=== PATIENT | male | born 1960 | race Caucasian/White ===

== ENCOUNTER 2020-07-04 11:39 | Emergency (ER) | payer OTHER ==
[~2020-07-04] VITALS: Ht 182.8 cm; Wt 101.2 kg
[2020-07-04 12:08] LABS: BASO # 0.1 10*3/uL (0.0-0.1); BASO % 0.5 % (0.0-1.0); EOS # 0.1 10*3/uL (0.0-0.4); EOS % 1.1 % (1.0-4.0); HEMATOCRIT 36.6 % (42.0-52.0); LYMPH # 1.3 10*3/uL (1.3-4.4); LYMPH % 13.1 % (27.0-41.0); MEAN CELL VOLUME 93.8 fl (80.0-94.0); MEAN CORPUSCULAR HGB 29.5 pg (27.0-31.0); MEAN CORPUSCULAR HGB CONC 31.4 g/dl (33.0-37.0); MEAN PLATELET VOLUME 9.3 fl (9.6-12.3); MONO # 0.6 10*3/uL (0.1-1.0); MONO % 5.8 % (3.0-9.0); NEUT # 7.6 10*3/uL (2.3-7.9); NEUT % 78.8 % (47.0-73.0); PLATELET COUNT AUTOMATED 318 10*3/uL (130-400); RED CELL DISTRI WIDTH 12.8 % (0-14.5); WHITE BLOOD COUNT 9.7 10*3/uL (4.8-10.8)
[2020-07-04 12:18] LABS: ACT PARTIAL THROMBO TIME 29.3 SECONDS (20.0-32.1)
[2020-07-04 12:24] LABS: ALBUMIN 3.1 gm/dl (3.1-4.5); ALKALINE PHOSPHATASE 70 U/L (45-117); BUN 48 mg/dl (7-24); CHLORIDE 106 mmol/L (98-107); POTASSIUM 4.8 mmol/L (3.5-5.1); SGOT/AST 18 IU/L (3-35); SGPT/ALT 19 U/L (12-78); SODIUM 137 mmol/L (136-145)
[2020-07-04 12:27] LABS: TROPONIN I < 0.015 ng/ml (<0.045)
[2020-07-04] MEDS ORDERED: PROAIR HFA8.5 GM INH (14:54)
[2020-07-04] MEDS ORDERED: SIMVASTATIN20 MG PO (14:54)
[2020-07-04] MEDS ORDERED: FLOMAX0.4 MG PO (14:55)
== END 2020-07-04 14:48 | disposition admitted as inpatient to this hospital (09) ==
LOC: ED 11:39
PROVIDERS: Internal Medicine
DX: I16.1 Hypertensive emergency (principal); E78.00 Pure hypercholesterolemia, unspecified; K21.9 Gastro-esophageal reflux disease without esophagitis; J45.909 Unspecified asthma, uncomplicated

== ENCOUNTER 2020-07-04 13:25 | Inpatient (IN) | payer OTHER ==
[~2020-07-04] VITALS: Ht 182.8 cm; Wt 98.4 kg
[2020-07-04] MEDS ORDERED: PROAIR HFA8.5 GM INH (14:54)
[2020-07-04] MEDS ORDERED: SIMVASTATIN20 MG PO (14:54)
[2020-07-04] MEDS ORDERED: FLOMAX0.4 MG PO (14:55)
[2020-07-04 15:00] VITALS: BP 167/88
[2020-07-04 16:03] VITALS: BP 167/88
[2020-07-04 16:29] VITALS: BP 158/88
[2020-07-04 18:20] VITALS: BP 155/87
[2020-07-04 20:25] VITALS: BP 151/82
[2020-07-05] VITALS: BP 133/82
[2020-07-05 00:21] LABS: BILIRUBIN Negative (Negative); BLOOD Trace-Lysed (Negative); CLARITY Clear (Clear); COLOR Yellow (Yellow); GLUCOSE Negative (Negative); KETONE Negative (Negative); LEUKO ESTERASE Negative (Negative); NITRITE Negative (Negative); UROBILINOGEN 0.2 E.U./dl (0.0-1.0)
[2020-07-05 00:37] LABS: BACTERIA TRACE
[2020-07-05 04:00] VITALS: BP 141/80
[2020-07-05 06:15] LABS: ALBUMIN 2.6 gm/dl (3.1-4.5); CREATININE 2.55 mg/dL (0.70-1.30); FREE T4 0.95 ng/dl (0.76-1.46); POTASSIUM 4.8 mmol/L (3.5-5.1); TOTAL PROTEIN 6.8 gm/dL (6.4-8.2)
[2020-07-05 06:16] LABS: ACT PARTIAL THROMBO TIME 31.6 SECONDS (20.0-32.1)
[2020-07-05 06:20] LABS: THYROID STIM HORMONE (HS) 6.05 uIU/ml (0.358-4.75)
[2020-07-05 06:27] LABS: BASO # 0.1 10*3/uL (0.0-0.1); BASO % 0.5 % (0.0-1.0); EOS # 0.3 10*3/uL (0.0-0.4); EOS % 2.8 % (1.0-4.0); HEMATOCRIT 33.1 % (42.0-52.0); LYMPH # 1.9 10*3/uL (1.3-4.4); LYMPH % 20.1 % (27.0-41.0); MEAN CELL VOLUME 93.5 fl (80.0-94.0); MEAN CORPUSCULAR HGB 29.7 pg (27.0-31.0); MEAN CORPUSCULAR HGB CONC 31.7 g/dl (33.0-37.0); MEAN PLATELET VOLUME 9.6 fl (9.6-12.3); MONO # 0.7 10*3/uL (0.1-1.0); MONO % 7.1 % (3.0-9.0); NEUT # 6.5 10*3/uL (2.3-7.9); NEUT % 68.7 % (47.0-73.0); PLATELET COUNT AUTOMATED 306 10*3/uL (130-400); RED BLOOD COUNT 3.54 10*6/uL (4.50-5.90); RED CELL DISTRI WIDTH 12.6 % (0-14.5); WHITE BLOOD COUNT 9.4 10*3/uL (4.8-10.8)
[2020-07-05 11:41] VITALS: BP 150/81
[2020-07-05 16:00] VITALS: BP 154/74
[2020-07-05 20:00] VITALS: BP 153/87
[2020-07-06] VITALS (7 sets, daily range): BP systolic 146–163; BP diastolic 58–92
[2020-07-06 06:20] LABS: BASO % 0.3 % (0.0-1.0); EOS # 0.2 10*3/uL (0.0-0.4); EOS % 1.9 % (1.0-4.0); LYMPH # 1.6 10*3/uL (1.3-4.4); LYMPH % 16.9 % (27.0-41.0); MEAN CELL VOLUME 92.6 fl (80.0-94.0); MEAN CORPUSCULAR HGB 29.4 pg (27.0-31.0); MEAN CORPUSCULAR HGB CONC 31.8 g/dl (33.0-37.0); MEAN PLATELET VOLUME 9.4 fl (9.6-12.3); MONO # 0.7 10*3/uL (0.1-1.0); MONO % 7.6 % (3.0-9.0); NEUT # 6.9 10*3/uL (2.3-7.9); NEUT % 72.5 % (47.0-73.0); PLATELET COUNT AUTOMATED 295 10*3/uL (130-400); RED BLOOD COUNT 3.67 10*6/uL (4.50-5.90); RED CELL DISTRI WIDTH 12.5 % (0-14.5); WHITE BLOOD COUNT 9.5 10*3/uL (4.8-10.8)
[2020-07-06 06:35] LABS: CREATININE 2.67 mg/dL (0.70-1.30); POTASSIUM 4.9 mmol/L (3.5-5.1)
[2020-07-06 18:11] LABS: BILIRUBIN Negative (Negative); BLOOD Trace-Lysed (Negative); CLARITY Clear (Clear); COLOR Yellow (Yellow); GLUCOSE Negative (Negative); KETONE Negative (Negative); LEUKO ESTERASE Negative (Negative); NITRITE Negative (Negative); UROBILINOGEN 0.2 E.U./dl (0.0-1.0)
[2020-07-06 18:15] LABS: EPITHELIAL CELLS 0-2; RBC 0-2 rbc/hpf (0-2)
[2020-07-06 18:16] LABS: BACTERIA TRACE
[2020-07-07] VITALS (7 sets, daily range): BP systolic 142–168; BP diastolic 71–94
[2020-07-07 06:20] LABS: BASO # 0.1 10*3/uL (0.0-0.1); BASO % 0.6 % (0.0-1.0); EOS # 0.2 10*3/uL (0.0-0.4); EOS % 1.8 % (1.0-4.0); HEMATOCRIT 33.6 % (42.0-52.0); LYMPH # 1.6 10*3/uL (1.3-4.4); LYMPH % 17.7 % (27.0-41.0); MEAN CELL VOLUME 91.6 fl (80.0-94.0); MEAN CORPUSCULAR HGB 29.7 pg (27.0-31.0); MEAN CORPUSCULAR HGB CONC 32.4 g/dl (33.0-37.0); MEAN PLATELET VOLUME 9.3 fl (9.6-12.3); MONO # 0.7 10*3/uL (0.1-1.0); MONO % 7.8 % (3.0-9.0); NEUT # 6.6 10*3/uL (2.3-7.9); NEUT % 71.2 % (47.0-73.0); PLATELET COUNT AUTOMATED 334 10*3/uL (130-400); RED BLOOD COUNT 3.67 10*6/uL (4.50-5.90); RED CELL DISTRI WIDTH 12.4 % (0-14.5); WHITE BLOOD COUNT 9.3 10*3/uL (4.8-10.8)
[2020-07-07 06:26] LABS: POTASSIUM 4.6 mmol/L (3.5-5.1)
[2020-07-07 06:28] LABS: CREATININE 2.7 mg/dL (0.70-1.30)
[2020-07-08] VITALS: BP 162/87
[2020-07-08 06:27] LABS: BASO # 0.1 10*3/uL (0.0-0.1); BASO % 0.4 % (0.0-1.0); EOS # 0.1 10*3/uL (0.0-0.4); EOS % 1.2 % (1.0-4.0); HEMATOCRIT 34.6 % (42.0-52.0); LYMPH # 1.5 10*3/uL (1.3-4.4); LYMPH % 12.4 % (27.0-41.0); MEAN CELL VOLUME 91.3 fl (80.0-94.0); MEAN CORPUSCULAR HGB 29.6 pg (27.0-31.0); MEAN CORPUSCULAR HGB CONC 32.4 g/dl (33.0-37.0); MEAN PLATELET VOLUME 9.3 fl (9.6-12.3); MONO # 0.9 10*3/uL (0.1-1.0); MONO % 7.6 % (3.0-9.0); NEUT # 9.4 10*3/uL (2.3-7.9); NEUT % 77.8 % (47.0-73.0); PLATELET COUNT AUTOMATED 343 10*3/uL (130-400); RED BLOOD COUNT 3.79 10*6/uL (4.50-5.90); RED CELL DISTRI WIDTH 12.4 % (0-14.5); WHITE BLOOD COUNT 12.1 10*3/uL (4.8-10.8)
[2020-07-08 07:03] LABS: CREATININE 2.63 mg/dL (0.70-1.30); POTASSIUM 4.6 mmol/L (3.5-5.1)
[2020-07-08 08:00] VITALS: BP 155/85
[2020-07-08] MEDS ORDERED: PEPCID40 MG PO (11:08)
[2020-07-08] MEDS ORDERED: AMLODIPINE BESYL5 MG PO (11:08)
== END 2020-07-08 11:41 | disposition home or self-care (01) | DRG 682 ==
LOC: EDHOLD 13:25 → 5E 13:25
PROVIDERS: Hospitalist; Social Worker Clinical; Student in an Organized Health Care Education/Training Program; ADMIT Emergency Medicine; ATTEND Emergency Medicine
DX: N17.0 Acute kidney failure with tubular necrosis (principal); E43 Unspecified severe protein-calorie malnutrition; I16.1 Hypertensive emergency; D64.9 Anemia, unspecified; E83.41 Hypermagnesemia; G47.33 Obstructive sleep apnea (adult) (pediatric); K21.9 Gastro-esophageal reflux disease without esophagitis; N40.0 Benign prostatic hyperplasia without lower urinary tract symptoms; E78.2 Mixed hyperlipidemia; J45.909 Unspecified asthma, uncomplicated; R73.9 Hyperglycemia, unspecified; Z68.29 Body mass index [BMI] 29.0-29.9, adult

== ENCOUNTER → 2020-07-09 | Outpatient (CLI) | payer OTHER ==
[~2020-07-09] MED LIST: AMLODIPINE BESYL5 MG PO; FLOMAX0.4 MG PO; PEPCID40 MG PO; PROAIR HFA8.5 GM INH; SIMVASTATIN20 MG PO
[2020-07-09 16:11] LABS: CREATININE 2.72 mg/dL (0.70-1.30); POTASSIUM 4.6 mmol/L (3.5-5.1)
== END | disposition home or self-care (01) ==
LOC: LAB 15:23
PROVIDERS: ATTEND Internal Medicine
DX: N17.9 Acute kidney failure, unspecified (principal)

== ENCOUNTER → 2020-07-12 | Outpatient (CLI) | payer OTHER ==
[2020-07-12 15:15] LABS: CREATININE 2.42 mg/dL (0.70-1.30); POTASSIUM 4.4 mmol/L (3.5-5.1)
== END | disposition home or self-care (01) ==
LOC: LAB 00:14
PROVIDERS: ATTEND Internal Medicine
DX: N17.9 Acute kidney failure, unspecified (principal)

== ENCOUNTER → 2020-07-15 | Outpatient (CLI) | payer OTHER | END | disposition home or self-care (01) | LOC: RESCLI 01:22 | PROVIDERS: ATTEND Internal Medicine | DX: N28.89 Other specified disorders of kidney and ureter (principal); I10 Essential (primary) hypertension; E78.5 Hyperlipidemia, unspecified; K21.9 Gastro-esophageal reflux disease without esophagitis; R21 Rash and other nonspecific skin eruption; Z79.899 Other long term (current) drug therapy ==

== ENCOUNTER → 2020-07-23 | Outpatient (CLI) | payer OTHER ==
[2020-07-23 15:55] LABS: ALBUMIN 3.2 gm/dl (3.1-4.5); CREATININE 2.16 mg/dL (0.70-1.30); POTASSIUM 4.2 mmol/L (3.5-5.1)
== END | disposition home or self-care (01) ==
LOC: LAB 14:58
PROVIDERS: ATTEND Internal Medicine Nephrology
DX: N17.9 Acute kidney failure, unspecified (principal); I10 Essential (primary) hypertension; R60.0 Localized edema

== ENCOUNTER → 2020-08-03 | Outpatient (CLI) | payer OTHER ==
[2020-08-03 13:47] LABS: ALBUMIN 3.4 gm/dl (3.1-4.5); CREATININE 1.89 mg/dL (0.70-1.30); POTASSIUM 4.3 mmol/L (3.5-5.1)
== END | disposition home or self-care (01) ==
LOC: LAB 13:09
PROVIDERS: ATTEND Internal Medicine Nephrology
DX: N17.9 Acute kidney failure, unspecified (principal); R60.0 Localized edema; I10 Essential (primary) hypertension

== ENCOUNTER 2020-09-22 14:55 | Emergency (ER) | payer OTHER ==
[~2020-09-22] VITALS: Ht 182.8 cm; Wt 90.7 kg
[2020-09-22 16:05] LABS: BASO # 0.1 10*3/uL (0.0-0.1); BASO % 1.2 % (0.0-1.0); EOS # 0.1 10*3/uL (0.0-0.4); EOS % 2.1 % (1.0-4.0); HEMATOCRIT 33.5 % (42.0-52.0); LYMPH # 1.4 10*3/uL (1.3-4.4); LYMPH % 27.8 % (27.0-41.0); MEAN CELL VOLUME 88.2 fl (80.0-94.0); MEAN CORPUSCULAR HGB 28.2 pg (27.0-31.0); MEAN CORPUSCULAR HGB CONC 31.9 g/dl (33.0-37.0); MEAN PLATELET VOLUME 9.1 fl (9.6-12.3); MONO # 0.4 10*3/uL (0.1-1.0); MONO % 7.4 % (3.0-9.0); NEUT # 3.2 10*3/uL (2.3-7.9); NEUT % 61.3 % (47.0-73.0); PLATELET COUNT AUTOMATED 260 10*3/uL (130-400); RED CELL DISTRI WIDTH 15.8 % (0-14.5); WHITE BLOOD COUNT 5.2 10*3/uL (4.8-10.8)
[2020-09-22 16:34] LABS: ALBUMIN 3.1 gm/dl (3.1-4.5); CREATININE 1.92 mg/dL (0.70-1.30); POTASSIUM 4.4 mmol/L (3.5-5.1)
[2020-09-22] MEDS ORDERED: ELIQUIS5 M1 PO (17:31)
[2020-09-22] MEDS ORDERED: LOVENOX100 MG/1 M SC (18:08)
== END 2020-09-22 18:47 | disposition home or self-care (01) ==
LOC: ED 14:55
PROVIDERS: Emergency Medicine
DX: I82.402 Acute embolism and thrombosis of unspecified deep veins of left lower extremity (principal); Z79.899 Other long term (current) drug therapy